=== PATIENT | male | born 1970 | race Caucasian/White ===

== ENCOUNTER → 2016-07-21 | Outpatient (REF) | payer MEDICARE ==
[~2016-07-21] MED LIST: CYMBALTA; SOMA350T; VICO5TAB
== END ==
LOC: M SMT 13:58
PROVIDERS: ATTEND Nurse Practitioner Women's Health
DX: R39.15 Urgency of urination (principal)
CPT/HCPCS: 81001; 87086; G0463

== ENCOUNTER → 2016-07-28 | Outpatient (CLI) | payer MEDICARE ==
[~2016-07-28] MED LIST changes: +GASTROGRAFIN SOLUTION 30ML (Q9963) As Ordered ONE; +ISOVUE-370 76% 100ML VIAL (Q9967) As Ordered ONE
--- NOTE | 2016-07-28 14:25 | REP ---
Clinical: Abdominal and testicular pain. Technique: Axial contrast enhanced images from the lung bases to the pubic symphysis using oral and 100 ml Isovue 370 intravenous contrast material with coronal and sagittal re-formations. Comparison: 05/08/2013. Findings: Lung bases clear. Visualized heart and pericardium normal. Liver, spleen, pancreas, gallbladder, bilateral adrenal glands and kidneys are normal. The enteric system is without obstruction or acute inflammatory process. Moderate fecal stasis and constipation cannot be excluded. Pelvis demonstrates normal bladder and age appropriate prostate/seminal vesicles. No ascites. No free air. No adenopathy. Vascular structures normal. Skeletal structures stable. Impression: Normal contrast enhanced CT of the abdomen and pelvis. Mild/moderate fecal stasis and possible constipation cannot be excluded. Signed by Steve Edmondson MD 07/28/2016 02:17 P
== END ==
LOC: M RAD 12:42
PROVIDERS: ATTEND Nurse Practitioner Women's Health
DX: R10.9 Unspecified abdominal pain (principal); N50.819 Testicular pain, unspecified
CPT/HCPCS: 74177; Q9963; Q9967

== ENCOUNTER 2017-07-24 15:18 | Emergency (ER) | payer MEDICARE | END 2017-07-24 16:47 | disposition home or self-care (01) | LOC: M ED 15:18 | DX: S13.4XXA Sprain of ligaments of cervical spine, initial encounter (principal); S01.01XA Laceration without foreign body of scalp, initial encounter; W19.XXXA Unspecified fall, initial encounter; Y92.099 Unspecified place in other non-institutional residence as the place of occurrence of the external cause; Y93.9 Activity, unspecified; Z79.899 Other long term (current) drug therapy; Z79.891 Long term (current) use of opiate analgesic | CPT/HCPCS: 70450 ==

== ENCOUNTER 2019-02-17 11:06 | Emergency (ER) | payer MEDICARE ==
[~2019-02-17] VITALS: Ht 182.9 cm; Wt 90.6 kg
[~2019-02-17 11:06] MED LIST changes: +CYCL10TA PO; -GASTROGRAFIN SOLUTION 30ML (Q9963) As Ordered ONE; +IBUP-1022 PO; -ISOVUE-370 76% 100ML VIAL (Q9967) As Ordered ONE; +OXYC-404; +OXYC20TA40; +PARO20TA3
[2019-02-17] MEDS ORDERED: PRED20TA (11:23)
[2019-02-17] MEDS ORDERED: OXYC10TA12 (11:23)
[2019-02-17] MEDS ORDERED: OXYC-141 (11:23)
[2019-02-17 12:02] LABS: BASO % 0.7 % (0.0-1.0); EOS # 0.4 10^3/uL (0.0-0.5); EOS % 6.4 % (0.0-3.0); HEMATOCRIT 46.2 % (42.0-52.0); HEMOGLOBIN 15.6 g/dl (13.5-17.5); LYMPH # 1.8 10^3/uL (1.5-5.0); LYMPH % 32.4 % (24.0-44.0); MEAN CORPUSCULAR HEMOGLOBIN 31.7 pg (27.0-33.0); MEAN CORPUSCULAR HGB CONC 33.8 g/dl (32.0-36.5); MEAN CORPUSCULAR VOLUME 93.9 fl (80.0-96.0); MONO # 0.4 10^3/uL (0.0-0.8); NEUTROPHILS # 2.9 10^3/uL (1.5-8.5); NEUTROPHILS % 52.1 % (36.0-66.0); PLATELET COUNT, AUTOMATED 239 10^3/uL (150-450); RED BLOOD COUNT 4.92 10^6/uL (4.30-6.10); WHITE BLOOD COUNT 5.5 10^3/uL (4.0-10.0)
--- NOTE | 2019-02-17 12:18 | REP ---
REASON: Pain after trauma, particularly 5th digit comparison 07/20/2009. FINDINGS: The joint spaces are symmetric and relatively well maintained. There is no evidence of acute fracture or destructive osseous lesion. IMPRESSION: Negative. No change from the prior exam. Electronically Signed by Ezequiel Kennedy DO 02/17/2019 12:20 P
[2019-02-17 12:24] LABS: ERYTHROCYTE SEDIMENTATION RATE 6 mm/hr (0-15)
[2019-02-17 12:45] VITALS: BP 133/74
[2019-02-17] MEDS ORDERED: PRED10TA2 PO (12:45)
[2019-02-21 00:07] LABS: ANTINUCLEAR ANTIBODIES DIRECT Negative (Negative); Lyme Disease IgG/IgM Antibodie <0.91 ISR (0.00-0.90); Lyme Disease IgM Ab Quantitati <0.80 index (0.00-0.79)
== END 2019-02-17 12:54 | disposition home or self-care (01) ==
LOC: M ED 11:06
DX: M13.0 Polyarthritis, unspecified (principal); M89.29 Other disorders of bone development and growth, multiple sites; M54.9 Dorsalgia, unspecified; S69.91XA Unspecified injury of right wrist, hand and finger(s), initial encounter; X58.XXXA Exposure to other specified factors, initial encounter; Y92.9 Unspecified place or not applicable; Y93.9 Activity, unspecified; Y99.9 Unspecified external cause status; Z79.899 Other long term (current) drug therapy

== ENCOUNTER 2019-09-02 01:59 | Emergency (ER) | payer MEDICARE ==
[~2019-09-02] VITALS: Ht 182.9 cm; Wt 93.7 kg
[~2019-09-02 01:59] MED LIST changes: +CYCL-707 PO; -CYCL10TA PO; +OXYC-141; +OXYC10TA12; +PRED10TA2 PO; +PRED20TA
[2019-09-02] MEDS ORDERED: diphenhydrAMINE 50MG/ML VIAL (J1200) IV STA ×2 (02:53→04:40)
[2019-09-02] MEDS ORDERED: NS 1,000 ML IV ONE (03:00)
[2019-09-02] MEDS ORDERED: METOCLOPRAMIDE INJ 10MG/2ML VIAL (J2765 PER 1) IV ONE ×2 (03:00→04:45)
[2019-09-02] MEDS ORDERED: KETOROLAC 30 MG/ML 1ML VIAL IV ONE (03:00)
--- NOTE | 2019-09-02 03:04 | REPVR ---
PROCEDURE INFORMATION: Exam: CT Head Without Contrast Exam date and time: 09/02/19 (2:48am) Age: 48 years old Clinical indication: Headache TECHNIQUE: Imaging protocol: Computed tomography of the head without contrast. Radiation optimization: All CT scans at this facility use at least one of these dose optimization techniques: automated exposure control; mA and/or kV adjustment per patient size (includes targeted exams where dose is matched to clinical indication); or iterative reconstruction. COMPARISON: CT HEAD of 07/24/17 FINDINGS: Brain: Unremarkable. No acute hemorrhage. Unremarkable white matter. No mass effect. Ventricles: Normal. No ventriculomegaly. Bones/joints: Unremarkable. No acute fracture. Sinuses: Visualized sinuses are unremarkable. No air-fluid levels. Mastoid air cells: Visualized mastoid air cells are well aerated. Soft tissues: Unremarkable. IMPRESSION: No acute intracranial pathology is appreciated. A similar appearance was noted on 07/24/17. Electronically signed by: Nohelia Corbett On 09/02/2019 03:03:40 AM
[2019-09-02] MEDS ORDERED: ACETAMINOPHEN 500 MG TAB PO ONE (04:45)
[2019-09-02 05:35] VITALS: BP 117/73
== END 2019-09-02 05:38 | disposition home or self-care (01) ==
LOC: M ED 01:59
DX: G43.909 Migraine, unspecified, not intractable, without status migrainosus (principal); Z82.0 Family history of epilepsy and other diseases of the nervous system
CPT/HCPCS: 70450; 80047; 96361; 96374; 96375; 96376; 99284; J1200; J1885; J2765

== ENCOUNTER 2022-01-03 13:21 | Emergency (ER) | payer MEDICARE ==
[~2022-01-03] VITALS: Ht 182.9 cm; Wt 89.9 kg
[2022-01-03] MEDS ORDERED: OXYC10TA12 PO (13:30)
[2022-01-03 16:20] VITALS: BP 121/78
== END 2022-01-03 16:21 | disposition home or self-care (01) ==
LOC: M ED 13:21
DX: S59.901A Unspecified injury of right elbow, initial encounter (principal); S80.862A Insect bite (nonvenomous), left lower leg, initial encounter; W57.XXXA Bitten or stung by nonvenomous insect and other nonvenomous arthropods, initial encounter; W22.8XXA Striking against or struck by other objects, initial encounter

== ENCOUNTER 2024-05-26 19:26 | Emergency (ER) | payer MEDICARE ==
[~2024-05-26] VITALS: Ht 182.9 cm; Wt 93.6 kg
[~2024-05-26 19:26] MED LIST changes: -OXYC-404; +OXYC10TA12 PO; +OXYC20TA64
[2024-05-26 19:30] VITALS: TEMP 97.6
[2024-05-26] MEDS ORDERED: LEVO88TA3 (19:34)
[2024-05-26 20:11] VITALS: O2SAT 97
[2024-05-26 20:15] VITALS: BP 126/79
== END 2024-05-26 20:39 | disposition home or self-care (01) ==
LOC: M ED 19:26
DX: T18.128A Food in esophagus causing other injury, initial encounter (principal); E03.9 Hypothyroidism, unspecified; Z79.899 Other long term (current) drug therapy